=== PATIENT | female | born 1945 | race Caucasian/White ===

== ENCOUNTER 2017-03-10 07:22 | Inpatient (IN) | payer MEDICARE ==
[~2017-03-10] VITALS: Ht 157.5 cm; Wt 75.4 kg
[2017-03-10] VITALS (15 sets, daily range): BP systolic 129–163; BP diastolic 54–93
[2017-03-10] MEDS ORDERED: ONDANSETRON PF 4 MG/2 ML VIAL. IV ONE (07:45)
[2017-03-10] MEDS ORDERED: IV NORMAL SALINE 1000ML BAG 1,000 ML IV ONE (07:45)
[2017-03-10 07:56] LABS: BASO # 0.1 x10^3/uL (0.0-0.2); BASO % 1 % (0-3); EOS % 0 % (0-3); LYMPH # 1.2 x10^3/uL (1.0-4.8); LYMPH % 8 % (24-48); MEAN CORPUSCULAR HEMOGLOBIN 30 pg (25-35); MEAN CORPUSCULAR HGB CONC 34 g/dL (31-37); MEAN CORPUSCULAR VOLUME 89 fL (79-100); MONO % 4 % (0-9); NEUT % 87 % (31-73); PLATELET COUNT 344 x10^3/uL (140-400); RED BLOOD COUNT 1.78 x10^6/uL (3.50-5.40); RED CELL DISTRIBUTION WIDTH 13.3 % (11.5-14.5); WHITE BLOOD COUNT 14.3 x10^3/uL (4.0-11.0)
--- NOTE | 2017-03-10 07:56 | EKG ---
[facility] [address] [place] [address] Test Date: 2017-03-10 Test Time: 07:48:36 Pat Name: YOBANI ROMO Department: Room: Gender: F Bedspread Folder: : 1945 Requested By: MARIELOS SALGADO Order Number: [id number] Reading MD: Jose Trimble Measurements Intervals [place] Rate: 91 P: 0 WV: 150 QRS: 12 QRSD: 92 T: 24 QT: 384 QTc: 474 Interpretive Statements SINUS RHYTHM QRS(T) CONTOUR ABNORMALITY CONSISTENT WITH INFERIOR INFARCT PROBABLY OLD RI6.01 Unconfirmed report No previous ECG available for comparison Electronically Signed On 03-13-2017 9:52:02 CDT by Jose Trimble
[2017-03-10 08:01] LABS: CALCIUM 9.2 mg/dL (8.5-10.1); CREATININE 0.7 mg/dL (0.6-1.0); GFR 82.5; POTASSIUM 3.4 mmol/L (3.5-5.1)
[2017-03-10 08:04] LABS: HEMOGLOBIN 5.4 g/dL (12.0-15.5)
[2017-03-10 08:05] LABS: HEMATOCRIT 15.7 % (36.0-47.0)
[2017-03-10 08:10] LABS: ALBUMIN 2.9 g/dL (3.4-5.0); ALBUMIN/GLOBULIN RATIO 1.2 (1.0-1.7); MAGNESIUM 1.6 mg/dL (1.8-2.4); TOTAL BILIRUBIN 0.2 mg/dL (0.2-1.0); TOTAL PROTEIN 5.3 g/dL (6.4-8.2)
[2017-03-10] MEDS ORDERED: ONDANSETRON PF 4 MG/2 ML VIAL. IV PRN (08:15)
[2017-03-10] MEDS ORDERED: MAGNESIUM OXIDE 400 MG TABLET PO STA (08:15)
[2017-03-10] MEDS ORDERED: POTASSIUM CHLORIDE 20 MEQ TABLET.ER. PO ONE (08:30)
[2017-03-10] MEDS ORDERED: IV NORMAL SALINE 500ML BAG 500 ML IV ONE (08:30)
--- NOTE | 2017-03-10 08:42 | ACF ---
Admission Forms Criteria ANEMIA, IRON DEFICIENCY OR UNSPECIFIED Clinical Indications for Inpatient Care (Place 'X' for any and all applicable criteria): Admission is indicated for ANY ONE of the following(1)(2)(3)(4)(5)(6)(7): [X] I. Inpatient admission required rather than observation care (Also use Anemia, Iron Deficiency or Unspecified: Observation Care guideline as appropriate) because of ANY ONE of the following: [] a) Hemodynamic instability that is severe or persistent [] b) Active bleeding that cannot be rapidly controlled [] c) CVS symptoms (i.e., dyspnea, chest pain, heart failure) that are severe or persistent [] d) Neurologic symptoms (i.e., cognitive impairment, recurrent syncope or near syncope) that are severe or persistent [] e) Cardiac arrhythmias of immediate concern [] f) Acute peripheral ischemia (e.g., pulseless, cool, mottled, or cyanotic extremity) [] g) High-risk low platelet count [] h) Acute renal failure [] i) Ongoing transfusion for blood loss (greater than 2 units) [] j) IV fluid to replace significant ongoing (eg, >24 hours) losses (> 3 L/m2 per day) [] k) Pulmonary artery catheter monitoring [] l) Supplemental oxygen or respiratory treatments for over 24 hours that are performable only in acute inpatient setting [] m) Immediate inpatient surgery [X] n) Other condition, treatment or monitoring requiring inpatient admission [] II Active massive hemorrhage [] III. Active hemolysis with rapidly progressive anemia [A](6) Extended stay beyond goal length of stay may be needed for (17)(18) []a) Diagnosed cause of anemia requiring longer hospitalization (eg, active GI bleeding, immune hemolysis requiring electrophoresis, complications of malignancy requiring acute care []b) Continued emergent anemia indicators (23) []c) Transfusion reactions []d) Associated leukopenia or thrombocytopenia needing inpatient care []e) Active comorbidities (eg, renal failure, heart failure) The original [facility] content created by [facility] has been revised. The portions of the content which have been revised are identified through the use of italic text or in bold. [facility] Guidelines has neither reviewed nor approved the modified material. All other unmodified content is copyright [facility]. Please see references footnoted in the original [facility] edition 2016 Admission Criteria Met?: Yes JANY JASON Mar 10, 2017 08:42
[2017-03-10 08:45] LABS: % SAT IRON 5 % (15-34); IRON,SERUM 16 ug/dL (50-170)
--- NOTE | 2017-03-10 08:45 | PHYS DOC ---
Past Medical History Past Medical History: Hypertension, Hyperthyroid Past Surgical History: Hysterectomy Alcohol Use: None Drug Use: None Adult General Chief Complaint Chief Complaint: NAUSEA/VOMITING/DIARRHA HPI HPI Patient is a 71 year old female presenting to the emergency department for evaluation of weakness and dizziness fatigue nausea and continued dry heaves. Patient was feeling worse this morning and felt as if she could not control the nausea. Patient is scheduled for parathyroid gland surgery later this month at [facility]. She denies any black or bloody stools. She denies any bleeding. She says that she has had anemia in the past but never required blood transfusions that she knows of. She denies any fevers chills diarrhea. Review of Systems Review of Systems Constitutional: Denies fever or chills [] Eyes: Denies change in visual acuity, redness, or eye pain [] HENT: Denies nasal congestion or sore throat [] Respiratory: Denies cough or shortness of breath [] Cardiovascular: No additional information not addressed in HPI [] GI: Denies abdominal pain. + nausea. No vomiting, bloody stools or diarrhea [] : Denies dysuria or hematuria [] Musculoskeletal: Denies back pain or joint pain [] Integument: Denies rash or skin lesions [] Neurologic: Denies headache, focal weakness. + dizzinesss Current Medications Current Medications Current Medications Medications (Trade) Dose Ordered Sig/Kiersten Start Time Stop Time Status Last Admin Dose Admin Fentanyl Citrate (Fentanyl 2ml Vial) 50 mcg PRN Q2HR PRN 03/10/17 08:15 03/11/17 08:14 Magnesium Oxide (Magnesium Oxide) 400 mg 1X STAT 03/10/17 08:15 03/10/17 08:21 DC Ondansetron HCl (Zofran) 4 mg PRN Q8HRS PRN 03/10/17 08:15 03/11/17 08:14 Potassium Chloride (Klor-Con) 40 meq 1X ONCE 03/10/17 08:30 03/10/17 08:31 DC Sodium Chloride 500 ml @ 500 mls/hr 1X ONCE 03/10/17 08:30 03/10/17 09:29 Allergies Allergies Allergies Coded Allergies Type Severity Reaction Last Updated Verified codeine Allergy Intermediate rash 03/10/17 Yes Physical Exam Physical Exam Constitutional: Well developed, well nourished, no acute distress, non-toxic appearance. [] HENT: Normocephalic, atraumatic, bilateral external ears normal, oropharynx moist, no oral exudates, nose normal. [] Eyes: PERRLA, EOMI, conjunctival pallor, no discharge. [] Neck: Normal range of motion, no tenderness, supple, no stridor. [] Cardiovascular:Heart rate regular rhythm, no murmur [] Lungs & Thorax: Bilateral breath sounds clear to auscultation [] Abdomen: Bowel sounds normal, soft, no tenderness, no masses, no pulsatile masses. [] Skin: Warm, dry, no erythema, no rash. [] Back: No tenderness, no CVA tenderness. [] Extremities: No tenderness, no cyanosis, no clubbing, ROM intact, no edema. [] Neurologic: Alert and oriented X 3, normal motor function, normal sensory function, no focal deficits noted. [] Current Patient Data Vital Signs Vital Signs Date Time Temp Pulse Resp B/P (MAP) Pulse Ox O2 Delivery O2 Flow Rate FiO2 03/10/17 07:22 98.3 95 20 142/65 (90) 98 Room Air 98.3 Lab Values Laboratory Tests Test 03/10/17 07:44 White Blood Count 14.3 x10^3/uL (4.0-11.0) H Red Blood Count 1.78 x10^6/uL (3.50-5.40) L Hemoglobin 5.4 g/dL (12.0-15.5) *L Hematocrit 15.7 % (36.0-47.0) *L Mean Corpuscular Volume 89 fL (79-100) Mean Corpuscular Hemoglobin 30 pg (25-35) Mean Corpuscular Hemoglobin Concent 34 g/dL (31-37) Red Cell Distribution Width 13.3 % (11.5-14.5) Platelet Count 344 x10^3/uL (140-400) Neutrophils (%) (Auto) 87 % (31-73) H Lymphocytes (%) (Auto) 8 % (24-48) L Monocytes (%) (Auto) 4 % (0-9) Eosinophils (%) (Auto) 0 % (0-3) Basophils (%) (Auto) 1 % (0-3) Neutrophils # (Auto) 12.5 x10^3uL (1.8-7.7) H Lymphocytes # (Auto) 1.2 x10^3/uL (1.0-4.8) Monocytes # (Auto) 0.6 x10^3/uL (0.0-1.1) Eosinophils # (Auto) 0.0 x10^3/uL (0.0-0.7) Basophils # (Auto) 0.1 x10^3/uL (0.0-0.2) Platelet Estimate Pending Sodium Level 131 mmol/L (136-145) L Potassium Level 3.4 mmol/L (3.5-5.1) L Chloride Level 95 mmol/L (98-107) L Carbon Dioxide Level 28 mmol/L (21-32) Anion Gap 8 (6-14) Blood Urea Nitrogen 59 mg/dL (7-20) H Creatinine 0.7 mg/dL (0.6-1.0) Estimated GFR (Cockcroft-Gault) 82.5 BUN/Creatinine Ratio 84 (6-20) H Glucose Level 141 mg/dL (70-99) H Calcium Level 9.2 mg/dL (8.5-10.1) Magnesium Level 1.6 mg/dL (1.8-2.4) L Total Bilirubin 0.2 mg/dL (0.2-1.0) Aspartate Amino Transferase (AST) 15 U/L (15-37) Alanine Aminotransferase (ALT) 12 U/L (14-59) L Alkaline Phosphatase 40 U/L (46-116) L Creatine Kinase 22 U/L (26-192) L Troponin I Quantitative 0.025 ng/mL (0.000-0.055) Total Protein 5.3 g/dL (6.4-8.2) L Albumin 2.9 g/dL (3.4-5.0) L Albumin/Globulin Ratio 1.2 (1.0-1.7) Lipase 249 U/L (73-393) Laboratory Tests 03/10/17 07:44 Laboratory Tests 03/10/17 07:44 EKG EKG Sinus rhythm at 91 bpm with normal axis no obvious ST elevation or depression and normal T waves. Radiology/Procedures Radiology/Procedures [] Course & Med Decision Making Course & Med Decision Making Patient has anemia that is normocytic and there is no obvious blood loss anemia. Patient is symptomatic from this and is functioning quite poorly at home so she will require admission and transfusion. Patient will be admitted with 3 units of blood ordered at this time and then will be reassessed as an inpatient. Patient aware and agreeable with plan and was admitted in stable condition. Dragon Disclaimer Dragon Disclaimer This electronic medical record was generated, in whole or in part, using a voice recognition dictation system. Departure Departure Impression: Primary Impression: Anemia Additional Impressions: Hypokalemia Hypomagnesemia Hyponatremia Dizziness Nausea alone Disposition: ADMITTED INPATIENT Admitting Physician: Melody Herrmann Condition: STABLE Referrals: STEFF BYRNES MD (PCP) Problem Qualifiers Primary Impression: Anemia Anemia type: unspecified type Qualified Codes: D64.9 - Anemia, unspecified MARIELOS SALGADO DO Mar 10, 2017 08:45
[2017-03-10] MEDS ORDERED: CRAN250T PO (10:11)
[2017-03-10] MEDS ORDERED: MULT-208 PO (10:11)
[2017-03-10] MEDS ORDERED: LISI1TAB7 PO (10:11)
[2017-03-10] MEDS ORDERED: GLUC100018 PO (10:11)
[2017-03-10] MEDS ORDERED: CHLO4TAB PO (10:11)
[2017-03-10 10:20] LABS: PLT ESTIMATE ADEQUATE (ADEQUATE)
[2017-03-10] MEDS: ONDANSETRON PF 4 MG/2 ML VIAL. IV PRN ×2 (12:18→20:58)
[2017-03-10] MEDS: MAG HYDROX/ALUMINUM HYD/SIMETH 30 ML ORAL.SUSP PO PRN ×2 (14:16→20:57)
--- NOTE | 2017-03-10 15:27 | PDOC2 ---
GI CONSULT Date Date/Time DATE: 03/10/17 TIME: 15:18 Providers Attending Physician Melody Herrmann MD Referring Physician Consulting Physician Dr. Rangel History of Present Illness HPI 70 WF with diagnosis of hyperparathyroidism per testing- curiously Calcium level here is normal - has surgery planned but has developed over the last several months new GI symptoms- they were ascribed to her hyperparathyroid but presents now with nausea, weakness and profound iron def. anemia. She denies melena or hematochezia but did have change in bowel habits about 2-3 months ago - irreg- and also developed arthritis in knees so began to take excedrin several times per day for relief- Then began to notice upset stomach and started taking yana seltzer to treat this- no EGD or meds for stomach. last colonoscopy 1989- at that time had uterian fibroids and anemia but anemia resolved after hysterectomy and colon was reported as negative History Past Medical History HTN recent elevated parathyroid level Past Surgical History hysterectomy Social/Personal History no smoking or alcohol Review of Systems Constitutional: yes: weakness Ears/Nose/Throat: Yes: no symptom reported, ear pain, ear discharge, ear itching, ear ringing, nasal pain, nasal discharge, nasal congestion, mouth pain , oral swelling, oropharyngeal pain, throat pain, throat swelling, dysphagia, other (goiter) Gastrointestinal: Yes: no symptom reported, nausea, vomiting, RUQ pain, epigastric pain, diarrhea, constipation, melena, hematochezia, hematemesis, abnormal stool, anorexia, hemorrhoids, abdominal pain, other (indigestion) Musculoskeletal: Yes: no symptom reported, shoulder pain, arm pain, back pain, hand pain, leg pain, foot pain, joint pain, muscle pain, muscle stiffness, muscle atrophy, joint swelling, neck pain, other (arthritis) Allergies Allergies Allergies Coded Allergies Type Severity Reaction Last Updated Verified codeine Allergy Intermediate rash 03/10/17 Yes Medications Medications Current Medications Sodium Chloride 1,000 ml @ 1,000 mls/hr 1X ONCE IV Last administered on 07:42; Start 03/10/17 at 07:45; Stop 03/10/17 at 08:44; Status DC Ondansetron HCl (Zofran) 8 mg 1X ONCE IV Last administered on 03/10/17 07:42; Start 03/10/17 at 07:45; Stop 03/10/17 at 07:46; Status DC Potassium Chloride (Klor-Con) 40 meq 1X ONCE PO Last administered on 03/10/17 08:55; Start 03/10/17 at 08:30; Stop 03/10/17 at 08:31; Status DC Sodium Chloride 500 ml @ 500 mls/hr 1X ONCE IV Last administered on 03/10/17 09:19; Start 03/10/17 at 08:30; Stop 03/10/17 at 09:29; Status DC Magnesium Oxide (Magnesium Oxide) 400 mg 1X STAT PO Last administered on 08:55; Start 03/10/17 at 08:15; Stop 03/10/17 at 08:21; Status DC Ondansetron HCl (Zofran) 4 mg PRN Q8HRS PRN IV NAUSEA/VOMITING; Start 03/10/17 at 08:15; Stop 03/10/17 at 09:15; Status DC Fentanyl Citrate (Fentanyl 2ml Vial) 50 mcg PRN Q2HR PRN IV PAIN; Start at 08:15; Stop 03/11/17 at 08:14 Ondansetron HCl (Zofran) 4 mg PRN Q6HRS PRN IV NAUSEA/VOMITING Last administered on 03/10/17 12:18; Start 03/10/17 at 09:12; Stop 03/11/17 at 09:11 Acetaminophen (Tylenol) 500 mg PRN Q6HRS PRN PO MILD PAIN / TEMP; Start at 09:15 Al Hydroxide/Mg Hydroxide (Mylanta Plus Xs) 30 ml PRN Q6HRS PRN PO DYSPEPSIA Last administered on 03/10/17 14:16; Start 03/10/17 at 14:15 Sodium Chloride 1,000 ml @ 100 mls/hr Q10H IV ; Start 03/10/17 at 14:30 Active Scripts Active Reported Chlortabs (Chlorpheniramine Maleate) 4 Mg Tablet 4 Mg PO Azo Cranberry (Cranberry Fruit Concentrate) 250 Mg Tab.chew 250 Mg PO Glucosamine (Glucosamine Sulfate 2KCL) 1,000 Mg Tablet 1,000 Mg PO Multi-Day Vitamins (Multivitamin) 1 Each Tablet 1 Tab PO DAILY Lisinopril-Hctz 20-25 Mg Tab (Lisinopril/Hydrochlorothiazide) 1 Each Tablet 1 Tab PO DAILY Physical Exam Physical Exam VSS mild goiter noted chest -clear cor- RRR abd soft NON tender extrem- no CCE neuro- non focal Labs Labs Laboratory Tests Test 03/10/17 07:44 03/10/17 08:11 White Blood Count 14.3 x10^3/uL (4.0-11.0) Red Blood Count 1.78 x10^6/uL (3.50-5.40) Hemoglobin 5.4 g/dL (12.0-15.5) Hematocrit 15.7 % (36.0-47.0) Mean Corpuscular Volume 89 fL (79-100) Mean Corpuscular Hemoglobin 30 pg (25-35) Mean Corpuscular Hemoglobin Concent 34 g/dL (31-37) Red Cell Distribution Width 13.3 % (11.5-14.5) Platelet Count 344 x10^3/uL (140-400) Neutrophils (%) (Auto) 87 % (31-73) Lymphocytes (%) (Auto) 8 % (24-48) Monocytes (%) (Auto) 4 % (0-9) Eosinophils (%) (Auto) 0 % (0-3) Basophils (%) (Auto) 1 % (0-3) Neutrophils # (Auto) 12.5 x10^3uL (1.8-7.7) Lymphocytes # (Auto) 1.2 x10^3/uL (1.0-4.8) Monocytes # (Auto) 0.6 x10^3/uL (0.0-1.1) Eosinophils # (Auto) 0.0 x10^3/uL (0.0-0.7) Basophils # (Auto) 0.1 x10^3/uL (0.0-0.2) Segmented Neutrophils % 90 % (35-66) Lymphocytes % 8 % (24-48) Monocytes % 2 % (0-10) Platelet Estimate Adequate (ADEQUATE) Sodium Level 131 mmol/L (136-145) Potassium Level 3.4 mmol/L (3.5-5.1) Chloride Level 95 mmol/L (98-107) Carbon Dioxide Level 28 mmol/L (21-32) Anion Gap 8 (6-14) Blood Urea Nitrogen 59 mg/dL (7-20) Creatinine 0.7 mg/dL (0.6-1.0) Estimated GFR (Cockcroft-Gault) 82.5 BUN/Creatinine Ratio 84 (6-20) Glucose Level 141 mg/dL (70-99) Calcium Level 9.2 mg/dL (8.5-10.1) Magnesium Level 1.6 mg/dL (1.8-2.4) Iron Level 16 ug/dL (50-170) Total Iron Binding Capacity 328 ug/dL (250-450) Iron Saturation 5 % (15-34) Ferritin 29 ng/mL (8-252) Total Bilirubin 0.2 mg/dL (0.2-1.0) Aspartate Amino Transf (AST/SGOT) 15 U/L (15-37) Alanine Aminotransferase (ALT/SGPT) 12 U/L (14-59) Alkaline Phosphatase 40 U/L (46-116) Creatine Kinase 22 U/L (26-192) Troponin I Quantitative 0.025 ng/mL (0.000-0.055) Total Protein 5.3 g/dL (6.4-8.2) Albumin 2.9 g/dL (3.4-5.0) Albumin/Globulin Ratio 1.2 (1.0-1.7) Lipase 249 U/L (73-393) Reticulocyte Count (auto) 1.6 % (0.5-2.5) Assessment Assessment Profound iron def anemia- no overt bleeding- no melena - but does have indigestion and regular aspirin use for knee pain/arthritis- no EGD or GI work and last colonoscopy 1989 Dyspepsia and nausea- likely from aspirin- although told could be from hyperparathyroidism Irreg bowels- mild, also told from parathyroid- no bleeding but overdue for screening colonoscopy Problems: Plan Plan protonix stop aspirin EGD consider colonoscopy later to complete w/u Thank you for allowing us to participate in the care of your patient. We will continue to follow the patient with you and provide an appropriate recommendation as it becomes available. SRINIVASA RANGEL MD Mar 10, 2017 15:27
[2017-03-10] MEDS: PANTOPRAZOLE 40 MG TABLET.DR. PO SCH (16:16)
[2017-03-10] MEDS: IV NORMAL SALINE 1000ML BAG 1,000 ML IV SCH (16:18)
--- NOTE | 2017-03-10 17:56 | HP ---
ADMIT DATE: 03/10/2017 CHIEF COMPLAINT: Nausea, vomiting, diarrhea. HISTORY OF PRESENT ILLNESS: The patient is a pleasant 71-year-old female who presented to the ER this morning with nausea, vomiting, and diarrhea. She has associated dizziness; she rated at 9/10. She tried taking some home meds, but that did not work. She apparently is scheduled for a parathyroid surgery at [facility] this month. On the ER, we found that she had a hemoglobin of 5.4. She is fairly anemic. I have discussed the case with the ER physician. We are going to admit the patient and consult Heme/Onc and give her transfusions. PAST MEDICAL HISTORY: Hyperthyroidism, hypertension, hysterectomy. ALLERGIES: CODEINE. FAMILY HISTORY: Coronary artery disease. SOCIAL HISTORY: She does not drink, smoke, or take drugs. MEDICATIONS: Reviewed, please refer to the MRAD. REVIEW OF SYSTEMS: GENERAL: No history of weight change, weakness or fevers. SKIN: No bruising, hair changes or rashes. EYES: No blurred, double or loss of vision. NOSE AND THROAT: No history of nosebleeds, hoarseness or sore throat. HEART: No history of palpitations, chest pain or shortness of breath on exertion. LUNGS: Denies cough, hemoptysis, wheezing or shortness of breath. GASTROINTESTINAL: The patient complains of nausea. GENITOURINARY: No history of frequency, urgency, hesitancy or nocturia. NEUROLOGIC: Denies history of numbness, tingling, tremor or weakness. PSYCHIATRIC: No history of panic, anxiety or depression. ENDOCRINE: The patient complains of weakness. EXTREMITIES: Denies muscle weakness, joint pain, pain on walking or stiffness. PHYSICAL EXAMINATION: VITAL SIGNS: Temperature afebrile, pulse 92, respirations 18, blood pressure 144/90. GENERAL: She is alert, cooperative. HEART: Normal S1, S2. LUNGS: Clear. ABDOMEN: Soft. Decreased bowel sounds, nontender. EXTREMITIES: No edema. SKIN: No rashes. ENDOCRINE: No thyromegaly. LYMPHATICS: No cervical nodes. HEMATOPOIETIC: No bruising. LABORATORY DATA: White count was 14, hemoglobin 5.4, platelets 344. Electrolytes: Sodium 131, potassium 3.4, chloride 95, bicarbonate 28, BUN 59, creatinine 0.7, glucose 141. ASSESSMENT AND PLAN: Anemia, suspect possible occult gastrointestinal bleed versus bone marrow disease. The patient is being admitted, we will consult GI in Heme/Onc, transfused 3 units of packed red blood cells, frequent labs, continue home medicines, PT/OT. KEVAN MUSTAFA DO DR: ANNE/susie JOB#: [id number] / [id number]
[2017-03-10 18:01] LABS: HEMOGLOBIN 8.7 g/dL (12.0-15.5); RED BLOOD COUNT 2.85 x10^6/uL (3.50-5.40); RED CELL DISTRIBUTION WIDTH 13.8 % (11.5-14.5); WHITE BLOOD COUNT 14.1 x10^3/uL (4.0-11.0)
[2017-03-10 18:18] LABS: ALBUMIN 2.7 g/dL (3.4-5.0); ALBUMIN/GLOBULIN RATIO 0.9 (1.0-1.7); CALCIUM 8.5 mg/dL (8.5-10.1); CREATININE 0.6 mg/dL (0.6-1.0); GFR 98.5; TOTAL BILIRUBIN 1.6 mg/dL (0.2-1.0); TOTAL PROTEIN 5.8 g/dL (6.4-8.2)
[2017-03-10] MEDS: hydroCHLOROthiazide 25 MG TABLET PO SCH (18:31)
[2017-03-10] MEDS: LISINOPRIL 20 MG TABLET PO SCH (18:32)
[2017-03-10] MEDS: fentaNYL PF VIAL 100 MCG/2 ML VIAL IV PRN (18:37)
[2017-03-11] MEDS: fentaNYL PF VIAL 100 MCG/2 ML VIAL IV PRN ×3 (01:33→20:29)
[2017-03-11] MEDS: IV NORMAL SALINE 1000ML BAG 1,000 ML IV SCH ×3 (01:34→20:30)
[2017-03-11 03:08] LABS: PTH INTACT 52 pg/mL (15-65)
[2017-03-11 03:15] VITALS: BP 119/68
[2017-03-11 04:33] LABS: BASO # 0.1 x10^3/uL (0.0-0.2); BASO % 1 % (0-3); EOS % 1 % (0-3); HEMATOCRIT 22.4 % (36.0-47.0); HEMOGLOBIN 7.7 g/dL (12.0-15.5); LYMPH # 1.9 x10^3/uL (1.0-4.8); LYMPH % 20 % (24-48); MEAN CORPUSCULAR HEMOGLOBIN 31 pg (25-35); MEAN CORPUSCULAR HGB CONC 35 g/dL (31-37); MEAN CORPUSCULAR VOLUME 88 fL (79-100); MONO % 11 % (0-9); NEUT % 68 % (31-73); PLATELET COUNT 252 x10^3/uL (140-400); RED BLOOD COUNT 2.53 x10^6/uL (3.50-5.40); RED CELL DISTRIBUTION WIDTH 13.9 % (11.5-14.5); WHITE BLOOD COUNT 9.7 x10^3/uL (4.0-11.0)
[2017-03-11 04:44] LABS: CALCIUM 8.4 mg/dL (8.5-10.1); CREATININE 0.6 mg/dL (0.6-1.0); GFR 98.5; POTASSIUM 3.9 mmol/L (3.5-5.1)
[2017-03-11 07:00] VITALS: BP 137/77
[2017-03-11 08:31] LABS: FOLATE 17.31 ng/ml (3.2-20.0)
--- NOTE | 2017-03-11 08:39 | PDOC ---
Provider Note Provider Note Heme consult dictated- [id number] Iron def anemia- EGD/ colonoscopy planned. Venofer ordered. Will need more as outpt. No evidence of hemolysis, suspect blood loss/ nutritional. Will attempt to pull [facility]'s records. Thank you. AMISHA DALEY DO Mar 11, 2017 08:39
[2017-03-11] MEDS ORDERED: IRON SUCROSE COMPLEX 500 MG in IV NORMAL SALINE 250ML 250 ML IV ONE (09:00)
[2017-03-11 11:00] VITALS: BP 133/62
--- NOTE | 2017-03-11 11:13 | PDOC ---
PROGRESS NOTES Chief Complaint Chief Complaint Severe Anemia with H/O: Hyperthyroidism, hypertension, hysterectomy. History of Present Illness History of Present Illness Pt seen and examined VSS DW Daughter and RN HgB trending back down after 3 units Vitals Vitals Vital Signs Date Time Temp Pulse Resp B/P (MAP) Pulse Ox O2 Delivery O2 Flow Rate FiO2 03/11/17 11:08 98 Room Air 03/11/17 11:00 98.1 91 16 133/62 (85) 98.1 Physical Exam General: Alert, Oriented X3, Cooperative Heart: Regular rate, Normal S1, Normal S2 Lungs: Clear Abdomen: Normal bowel sounds, Soft Extremities: No clubbing, No cyanosis Skin: No rashes, No breakdown Labs LABS Laboratory Tests Test 03/10/17 17:55 03/11/17 03:39 White Blood Count 14.1 x10^3/uL (4.0-11.0) 9.7 x10^3/uL (4.0-11.0) Red Blood Count 2.85 x10^6/uL (3.50-5.40) 2.53 x10^6/uL (3.50-5.40) Hemoglobin 8.7 g/dL (12.0-15.5) 7.7 g/dL (12.0-15.5) Hematocrit 25.0 % (36.0-47.0) 22.4 % (36.0-47.0) Mean Corpuscular Volume 88 fL (79-100) 88 fL (79-100) Mean Corpuscular Hemoglobin 30 pg (25-35) 31 pg (25-35) Mean Corpuscular Hemoglobin Concent 35 g/dL (31-37) 35 g/dL (31-37) Red Cell Distribution Width 13.8 % (11.5-14.5) 13.9 % (11.5-14.5) Platelet Count 266 x10^3/uL (140-400) 252 x10^3/uL (140-400) Sodium Level 132 mmol/L (136-145) 134 mmol/L (136-145) Potassium Level 4.0 mmol/L (3.5-5.1) 3.9 mmol/L (3.5-5.1) Chloride Level 99 mmol/L (98-107) 102 mmol/L (98-107) Carbon Dioxide Level 28 mmol/L (21-32) 27 mmol/L (21-32) Anion Gap 5 (6-14) 5 (6-14) Blood Urea Nitrogen 36 mg/dL (7-20) 24 mg/dL (7-20) Creatinine 0.6 mg/dL (0.6-1.0) 0.6 mg/dL (0.6-1.0) Estimated GFR (Cockcroft-Gault) 98.5 98.5 BUN/Creatinine Ratio 60 (6-20) Glucose Level 118 mg/dL (70-99) 99 mg/dL (70-99) Calcium Level 8.5 mg/dL (8.5-10.1) 8.4 mg/dL (8.5-10.1) Total Bilirubin 1.6 mg/dL (0.2-1.0) Aspartate Amino Transf (AST/SGOT) 17 U/L (15-37) Alanine Aminotransferase (ALT/SGPT) 13 U/L (14-59) Alkaline Phosphatase 43 U/L (46-116) Total Protein 5.8 g/dL (6.4-8.2) Albumin 2.7 g/dL (3.4-5.0) Albumin/Globulin Ratio 0.9 (1.0-1.7) Neutrophils (%) (Auto) 68 % (31-73) Lymphocytes (%) (Auto) 20 % (24-48) Monocytes (%) (Auto) 11 % (0-9) Eosinophils (%) (Auto) 1 % (0-3) Basophils (%) (Auto) 1 % (0-3) Neutrophils # (Auto) 6.6 x10^3uL (1.8-7.7) Lymphocytes # (Auto) 1.9 x10^3/uL (1.0-4.8) Monocytes # (Auto) 1.0 x10^3/uL (0.0-1.1) Eosinophils # (Auto) 0.1 x10^3/uL (0.0-0.7) Basophils # (Auto) 0.1 x10^3/uL (0.0-0.2) Lactate Dehydrogenase 132 U/L (81-234) Vitamin B12 Level 823 pg/mL (247-911) Serum Folate 17.31 ng/ml (3.2-20.0) Review of Systems Review of Systems co weakness co hunger Assessment and Plan Assessmemt and Plan Problems Medical Problems: (1) Dizziness Status: Acute (2) Hypokalemia Status: Acute (3) Hypomagnesemia Status: Acute (4) Hyponatremia Status: Acute (5) Nausea alone Status: Acute Severe Anemia with H/O: Hyperthyroidism, hypertension, hysterectomy. Plan W/O in progress Appreciate subspecialist input. Recheck labs PTOT Home meds Floow HgB EGD today Problems: Comment Review of Relevant I have reviewed the following items fawn (where applicable) has been applied. Labs Laboratory Tests Test 03/10/17 07:44 03/10/17 08:11 03/10/17 17:55 03/11/17 03:39 White Blood Count 14.3 x10^3/uL (4.0-11.0) 14.1 x10^3/uL (4.0-11.0) 9.7 x10^3/uL (4.0-11.0) Red Blood Count 1.78 x10^6/uL (3.50-5.40) 2.85 x10^6/uL (3.50-5.40) 2.53 x10^6/uL (3.50-5.40) Hemoglobin 5.4 g/dL (12.0-15.5) 8.7 g/dL (12.0-15.5) 7.7 g/dL (12.0-15.5) Hematocrit 15.7 % (36.0-47.0) 25.0 % (36.0-47.0) 22.4 % (36.0-47.0) Mean Corpuscular Volume 89 fL (79-100) 88 fL (79-100) 88 fL (79-100) Mean Corpuscular Hemoglobin 30 pg (25-35) 30 pg (25-35) 31 pg (25-35) Mean Corpuscular Hemoglobin Concent 34 g/dL (31-37) 35 g/dL (31-37) 35 g/dL (31-37) Red Cell Distribution Width 13.3 % (11.5-14.5) 13.8 % (11.5-14.5) 13.9 % (11.5-14.5) Platelet Count 344 x10^3/uL (140-400) 266 x10^3/uL (140-400) 252 x10^3/uL (140-400) Neutrophils (%) (Auto) 87 % (31-73) 68 % (31-73) Lymphocytes (%) (Auto) 8 % (24-48) 20 % (24-48) Monocytes (%) (Auto) 4 % (0-9) 11 % (0-9) Eosinophils (%) (Auto) 0 % (0-3) 1 % (0-3) Basophils (%) (Auto) 1 % (0-3) 1 % (0-3) Neutrophils # (Auto) 12.5 x10^3uL (1.8-7.7) 6.6 x10^3uL (1.8-7.7) Lymphocytes # (Auto) 1.2 x10^3/uL (1.0-4.8) 1.9 x10^3/uL (1.0-4.8) Monocytes # (Auto) 0.6 x10^3/uL (0.0-1.1) 1.0 x10^3/uL (0.0-1.1) Eosinophils # (Auto) 0.0 x10^3/uL (0.0-0.7) 0.1 x10^3/uL (0.0-0.7) Basophils # (Auto) 0.1 x10^3/uL (0.0-0.2) 0.1 x10^3/uL (0.0-0.2) Segmented Neutrophils % 90 % (35-66) Lymphocytes % 8 % (24-48) Monocytes % 2 % (0-10) Platelet Estimate Adequate (ADEQUATE) Sodium Level 131 mmol/L (136-145) 132 mmol/L (136-145) 134 mmol/L (136-145) Potassium Level 3.4 mmol/L (3.5-5.1) 4.0 mmol/L (3.5-5.1) 3.9 mmol/L (3.5-5.1) Chloride Level 95 mmol/L (98-107) 99 mmol/L (98-107) 102 mmol/L (98-107) Carbon Dioxide Level 28 mmol/L (21-32) 28 mmol/L (21-32) 27 mmol/L (21-32) Anion Gap 8 (6-14) 5 (6-14) 5 (6-14) Blood Urea Nitrogen 59 mg/dL (7-20) 36 mg/dL (7-20) 24 mg/dL (7-20) Creatinine 0.7 mg/dL (0.6-1.0) 0.6 mg/dL (0.6-1.0) 0.6 mg/dL (0.6-1.0) Estimated GFR (Cockcroft-Gault) 82.5 98.5 98.5 BUN/Creatinine Ratio 84 (6-20) 60 (6-20) Glucose Level 141 mg/dL (70-99) 118 mg/dL (70-99) 99 mg/dL (70-99) Calcium Level 9.2 mg/dL (8.5-10.1) 8.5 mg/dL (8.5-10.1) 8.4 mg/dL (8.5-10.1) Magnesium Level 1.6 mg/dL (1.8-2.4) Iron Level 16 ug/dL (50-170) Total Iron Binding Capacity 328 ug/dL (250-450) Iron Saturation 5 % (15-34) Transferrin 263 mg/dL (200-370) Ferritin 29 ng/mL (8-252) Total Bilirubin 0.2 mg/dL (0.2-1.0) 1.6 mg/dL (0.2-1.0) Aspartate Amino Transf (AST/SGOT) 15 U/L (15-37) 17 U/L (15-37) Alanine Aminotransferase (ALT/SGPT) 12 U/L (14-59) 13 U/L (14-59) Alkaline Phosphatase 40 U/L (46-116) 43 U/L (46-116) Creatine Kinase 22 U/L (26-192) Troponin I Quantitative 0.025 ng/mL (0.000-0.055) Total Protein 5.3 g/dL (6.4-8.2) 5.8 g/dL (6.4-8.2) Albumin 2.9 g/dL (3.4-5.0) 2.7 g/dL (3.4-5.0) Albumin/Globulin Ratio 1.2 (1.0-1.7) 0.9 (1.0-1.7) Lipase 249 U/L (73-393) Reticulocyte Count (auto) 1.6 % (0.5-2.5) Estimated GFR (Non- 95 (>59) EGFR 110 (>59) PTH (Intact) Specimen Description Comment (.) Parathyroid Hormone (Intact) 52 pg/mL (15-65) Calcium (PTH Intact) 9.1 mg/dL (8.7-10.3) Creatinine (PTH Intact) 0.54 mg/dL (0.57-1.00) Phosphorus (PTH Intact) 2.9 mg/dL (2.5-4.5) Lactate Dehydrogenase 132 U/L (81-234) Vitamin B12 Level 823 pg/mL (247-911) Serum Folate 17.31 ng/ml (3.2-20.0) Laboratory Tests Test 03/10/17 17:55 03/11/17 03:39 White Blood Count 14.1 x10^3/uL (4.0-11.0) 9.7 x10^3/uL (4.0-11.0) Red Blood Count 2.85 x10^6/uL (3.50-5.40) 2.53 x10^6/uL (3.50-5.40) Hemoglobin 8.7 g/dL (12.0-15.5) 7.7 g/dL (12.0-15.5) Hematocrit 25.0 % (36.0-47.0) 22.4 % (36.0-47.0) Mean Corpuscular Volume 88 fL (79-100) 88 fL (79-100) Mean Corpuscular Hemoglobin 30 pg (25-35) 31 pg (25-35) Mean Corpuscular Hemoglobin Concent 35 g/dL (31-37) 35 g/dL (31-37) Red Cell Distribution Width 13.8 % (11.5-14.5) 13.9 % (11.5-14.5) Platelet Count 266 x10^3/uL (140-400) 252 x10^3/uL (140-400) Sodium Level 132 mmol/L (136-145) 134 mmol/L (136-145) Potassium Level 4.0 mmol/L (3.5-5.1) 3.9 mmol/L (3.5-5.1) Chloride Level 99 mmol/L (98-107) 102 mmol/L (98-107) Carbon Dioxide Level 28 mmol/L (21-32) 27 mmol/L (21-32) Anion Gap 5 (6-14) 5 (6-14) Blood Urea Nitrogen 36 mg/dL (7-20) 24 mg/dL (7-20) Creatinine 0.6 mg/dL (0.6-1.0) 0.6 mg/dL (0.6-1.0) Estimated GFR (Cockcroft-Gault) 98.5 98.5 BUN/Creatinine Ratio 60 (6-20) Glucose Level 118 mg/dL (70-99) 99 mg/dL (70-99) Calcium Level 8.5 mg/dL (8.5-10.1) 8.4 mg/dL (8.5-10.1) Total Bilirubin 1.6 mg/dL (0.2-1.0) Aspartate Amino Transf (AST/SGOT) 17 U/L (15-37) Alanine Aminotransferase (ALT/SGPT) 13 U/L (14-59) Alkaline Phosphatase 43 U/L (46-116) Total Protein 5.8 g/dL (6.4-8.2) Albumin 2.7 g/dL (3.4-5.0) Albumin/Globulin Ratio 0.9 (1.0-1.7) Neutrophils (%) (Auto) 68 % (31-73) Lymphocytes (%) (Auto) 20 % (24-48) Monocytes (%) (Auto) 11 % (0-9) Eosinophils (%) (Auto) 1 % (0-3) Basophils (%) (Auto) 1 % (0-3) Neutrophils # (Auto) 6.6 x10^3uL (1.8-7.7) Lymphocytes # (Auto) 1.9 x10^3/uL (1.0-4.8) Monocytes # (Auto) 1.0 x10^3/uL (0.0-1.1) Eosinophils # (Auto) 0.1 x10^3/uL (0.0-0.7) Basophils # (Auto) 0.1 x10^3/uL (0.0-0.2) Lactate Dehydrogenase 132 U/L (81-234) Vitamin B12 Level 823 pg/mL (247-911) Serum Folate 17.31 ng/ml (3.2-20.0) Medications Current Medications Sodium Chloride 1,000 ml @ 1,000 mls/hr 1X ONCE IV Last administered on 07:42; Start 03/10/17 at 07:45; Stop 03/10/17 at 08:44; Status DC Ondansetron HCl (Zofran) 8 mg 1X ONCE IV Last administered on 03/10/17 07:42; Start 03/10/17 at 07:45; Stop 03/10/17 at 07:46; Status DC Potassium Chloride (Klor-Con) 40 meq 1X ONCE PO Last administered on 03/10/17 08:55; Start 03/10/17 at 08:30; Stop 03/10/17 at 08:31; Status DC Sodium Chloride 500 ml @ 500 mls/hr 1X ONCE IV Last administered on 03/10/17 09:19; Start 03/10/17 at 08:30; Stop 03/10/17 at 09:29; Status DC Magnesium Oxide (Magnesium Oxide) 400 mg 1X STAT PO Last administered on 08:55; Start 03/10/17 at 08:15; Stop 03/10/17 at 08:21; Status DC Ondansetron HCl (Zofran) 4 mg PRN Q8HRS PRN IV NAUSEA/VOMITING; Start 03/10/17 at 08:15; Stop 03/10/17 at 09:15; Status DC Fentanyl Citrate (Fentanyl 2ml Vial) 50 mcg PRN Q2HR PRN IV PAIN Last administered on 03/11/17 01:33; Start 03/10/17 at 08:15; Stop 03/11/17 at 08:14; Status DC Ondansetron HCl (Zofran) 4 mg PRN Q6HRS PRN IV NAUSEA/VOMITING Last administered on 03/10/17 20:58; Start 03/10/17 at 09:12; Stop 03/11/17 at 09:11; Status DC Acetaminophen (Tylenol) 500 mg PRN Q6HRS PRN PO MILD PAIN / TEMP; Start at 09:15 Al Hydroxide/Mg Hydroxide (Mylanta Plus Xs) 30 ml PRN Q6HRS PRN PO DYSPEPSIA Last administered on 03/10/17 20:57; Start 03/10/17 at 14:15 Sodium Chloride 1,000 ml @ 100 mls/hr Q10H IV Last administered on 03/11/17 01 :34; Start 03/10/17 at 14:30 Pantoprazole Sodium (Protonix) 40 mg BIDAC PO Last administered on 03/10/17 16: 16; Start 03/10/17 at 16:30 Lisinopril (Prinivil) 20 mg DAILY PO Last administered on 03/10/17 18:32; Start 03/10/17 at 17:15 Hydrochlorothiazide (Hydrodiuril) 25 mg DAILY PO Last administered on 03/10/17 18:31; Start 03/10/17 at 17:15 Iron Sucrose 500 mg/Sodium Chloride 275 ml @ 78.571 mls/ hr 1X ONCE IV Last administered on 03/11/17 10:18; Start 03/11/17 at 09:00; Stop 03/11/17 at 12:29 Fentanyl Citrate (Fentanyl 2ml Vial) 50 mcg PRN Q2HR PRN IV PAIN Last administered on 03/11/17 10:15; Start 03/11/17 at 10:00 Active Scripts Active Reported Chlortabs (Chlorpheniramine Maleate) 4 Mg Tablet 4 Mg PO Azo Cranberry (Cranberry Fruit Concentrate) 250 Mg Tab.chew 250 Mg PO Glucosamine (Glucosamine Sulfate 2KCL) 1,000 Mg Tablet 1,000 Mg PO Multi-Day Vitamins (Multivitamin) 1 Each Tablet 1 Tab PO DAILY Lisinopril-Hctz 20-25 Mg Tab (Lisinopril/Hydrochlorothiazide) 1 Each Tablet 1 Tab PO DAILY Vitals/I & O Vital Sign - Last 24 Hours 03/10/17 03/10/17 03/10/17 03/10/17 11:28 11:50 12:31 13:25 Temp 98.5 98.6 98.4 98.6 98.5 98.6 98.4 98.6 Pulse 100 85 90 94 Resp 18 20 20 20 B/P (MAP) 140/71 134/69 134/69 129/78 03/10/17 03/10/17 03/10/1703/10/17 14:49 15:03 15:10 16:07 Temp 99.0 98.6 99.5 99.3 99.0 98.6 99.5 99.3 Pulse 93 98 129 117 Resp 20 18 20 20 B/P (MAP) 144/73 150/74 (99) 156/81 163/83 Pulse Ox 100 O2 Delivery Room Air 03/10/17 03/10/17 03/10/17 03/10/17 17:03 18:32 18:37 19:25 Temp 98.8 99.4 98.8 99.4 Pulse 117 116 Resp 18 B/P (MAP) 163/83 150/93 (112) Pulse Ox 100 96 O2 Delivery Room Air Room Air 03/10/17 03/10/17 03/11/17 03/11/17 20:00 23:00 01:33 02:08 Temp 98.3 98.3 Pulse 86 Resp 20 B/P (MAP) 144/74 (97) Pulse Ox 96 O2 Delivery Room Air Room Air Room Air Room Air 03/11/17 03/11/17 03/11/17 03/11/17 03:15 07:00 08:00 10:15 Temp 98.1 98.1 98.1 98.1 Pulse 83 87 Resp 18 18 B/P (MAP) 119/68 (85) 137/77 (97) Pulse Ox 97 98 98 O2 Delivery Room Air Room Air Room Air Room Air 03/11/17 03/11/17 11:00 11:08 Temp 98.1 98.1 Pulse 91 Resp 16 B/P (MAP) 133/62 (85) Pulse Ox 98 98 O2 Delivery Room Air Room Air Intake and Output 03/10/17 03/10/17 03/11/17 15:00 23:00 07:00 Intake Total 1030 ml 924 ml 240 ml Balance 1030 ml 924 ml 240 ml KEVAN MUSTAFA III DO Mar 11, 2017 11:13
[2017-03-11] MEDS: IV RINGERS,LACTATED 1000ML 1,000 ML IV SCH ×2 (13:14→20:22)
[2017-03-11] MEDS ORDERED: fentaNYL PF VIAL 100 MCG/2 ML VIAL IV PRN ×2 (13:15)
[2017-03-11] MEDS ORDERED: MIDAZOLAM HCL/PF 2 MG/2 ML VIAL. IV PRN (13:15)
[2017-03-11] MEDS ORDERED: LIDOCAINE 1% 1 ML SYRINGE. ID PRN (13:15)
[2017-03-11] MEDS ORDERED: PROPOFOL 20 ML IV ONE (14:16)
--- NOTE | 2017-03-11 14:39 | PDOC4 ---
PROCEDURE Procedure EGD/biopsies Indication: ALEXI, heavy ASA use, dyspepsia Meds: per anesthesia Findings: E-Inactive reflux at GE junction G-defomed pylorus c/w old ulcer disease. Biopsies of antrum. D-2, 8-12mm ulcers on posterior wall bulb w/o active bleeding or SRH. Second portion normal. Sridevi. well. IMP: Duodenal ulcers Reflux, largely healed. REC: Await biopsies. PPI at least 608 weeks; consider chronic therapy if uses NSAIDs on on- going basis. PO iron until stores repleted. Overdue for screening colonoscopy; OK to do as outpatient. Ok to resume diet, meds. KEZIA BONILLA MD Mar 11, 2017 14:39
[2017-03-11] MEDS: ACETAMINOPHEN 500 MG TABLET PO PRN ×2 (15:59→23:40)
[2017-03-11] MEDS: PANTOPRAZOLE 40 MG TABLET.DR. PO SCH ×2 (16:00→16:30)
[2017-03-11] MEDS: LISINOPRIL 20 MG TABLET PO SCH (16:00)
[2017-03-11] MEDS: hydroCHLOROthiazide 25 MG TABLET PO SCH (16:00)
[2017-03-11 19:35] VITALS: BP 129/61
[2017-03-11 23:35] VITALS: BP 122/63
--- NOTE | 2017-03-11 23:58 | CONS ---
DATE OF CONSULTATION: 03/11/2017 REFERRING PROVIDER: Dr. Tong. REASON FOR CONSULTATION: Anemia. HISTORY OF PRESENT ILLNESS: The patient is a 71-year-old female who presented to the hospital with nausea, vomiting, diarrhea, dizziness and notably a hemoglobin of 5.4. She reports recently being diagnosed with a goiter and hyperparathyroidism, evaluated in the [facility] with a plan to undergo a parathyroidectomy on 03/26/2017. She states that her PTH and calcium levels have been markedly abnormal previously. Interestingly, they are actually normal here. She denies any melena or hematochezia. Her last colonoscopy was in 1989 and unremarkable. She has had a hysterectomy previously for uterine fibroids. PAST MEDICAL HISTORY: Possible goiter, hyperparathyroidism, hypertension and arthritis. PAST SURGICAL HISTORY: Hysterectomy for fibroids, tonsillectomy. FAMILY HISTORY: Dad from a stroke in advanced age. Mom at 36, possibly from a gynecologic malignancy. None of her siblings have any health issues. SOCIAL HISTORY: No tobacco, alcohol or drug use. ALLERGIES: CODEINE. CURRENT MEDICATIONS: Hydrochlorothiazide, lisinopril, Protonix, Mylanta, Tylenol, and Zofran. REVIEW OF SYSTEMS: Ten point review of systems completed and unremarkable with the exception of that mentioned in HPI and recent pallor. PHYSICAL EXAMINATION: VITAL SIGNS: Temperature 98.1, pulse 87, respiratory rate 18, blood pressure 137/77, 98% O2 on room air. GENERAL: She is alert and oriented, in no distress at this time. Overall, appears to be in good health. HEENT: Extraocular muscles are intact. Sclerae are without icterus. Mucous membranes are moist. CARDIOVASCULAR: Heart is regular in rhythm and rate. LUNGS: Clear to auscultation bilaterally. ABDOMEN: Soft, nontender. EXTREMITIES: No edema. NEUROLOGIC: No focal deficits. SKIN: Pallor has improved. IMAGING/LABORATORY DATA: Hemoglobin on admission at 5.4, panchito to 8.7, dropped to 7.7 yesterday after 3 units of blood transfused. WBC and platelet count is normal. MCV 88. No schistocytes seen. Reticulocyte count 1.6, creatinine 0.6, PTH 52, calcium 9.1, phosphorus 2.9, total bilirubin 1.6. Serum iron low at 16, ferritin 29. ASSESSMENT AND PLAN: The patient is a 71-year-old female with the following medical problems: 1. Iron deficiency anemia, cause unclear. GI is planning to do an EGD today, likely colonoscopy in the near future. She admits that because of her ongoing symptoms thought to be previously related to hyperparathyroidism, she has not had good oral intake of foods. It is possible some of this iron deficiency could be nutritional in nature as well. Although her bilirubin is mildly elevated, I do not think she has any active hemolysis contributing as her LDH is normal, no schistocytes seen on this smear. B12, folic acid, and haptoglobin are pending. I have ordered her first dose of Venofer 500 mg today and will give another 500 mg tomorrow. I will also set up a followup appointment in our clinic next week to receive at least another 1000 mg of IV iron as she has an IV iron deficit of at least 2200 mg. We discussed that her hemoglobin will likely take 2 months to fully improve, but her symptoms may improve before that. 2. Possible hyperparathyroidism with recent abnormal calcium levels. Her labs are normal here. I will try to pull her outside [facility]'s records to see our labs have been running there. I did reassure her and her daughter that there is not an acute issue with her parathyroid that needs to be dealt with now. However, her upcoming surgery will likely need to be postponed until her hemoglobin is improved. They voiced understanding. Thank you for allowing me to participate in her care. AMISHA DALEY DO DR: AMY/susie JOB#: [id number] / [id number] ALFONSO
[2017-03-12] VITALS (9 sets, daily range): BP systolic 110–173; BP diastolic 60–81
[2017-03-12 04:15] LABS: BASO # 0.1 x10^3/uL (0.0-0.2); BASO % 1 % (0-3); EOS % 1 % (0-3); HEMOGLOBIN 7.1 g/dL (12.0-15.5); LYMPH # 1.6 x10^3/uL (1.0-4.8); LYMPH % 17 % (24-48); MEAN CORPUSCULAR HEMOGLOBIN 31 pg (25-35); MEAN CORPUSCULAR HGB CONC 34 g/dL (31-37); MEAN CORPUSCULAR VOLUME 89 fL (79-100); MONO % 13 % (0-9); NEUT % 69 % (31-73); PLATELET COUNT 261 x10^3/uL (140-400); RED BLOOD COUNT 2.32 x10^6/uL (3.50-5.40); RED CELL DISTRIBUTION WIDTH 14.2 % (11.5-14.5); WHITE BLOOD COUNT 9.5 x10^3/uL (4.0-11.0)
[2017-03-12 04:35] LABS: HEMATOCRIT 20.7 % (36.0-47.0)
[2017-03-12] MEDS: IV NORMAL SALINE 1000ML BAG 1,000 ML IV SCH (06:33)
[2017-03-12] MEDS: PANTOPRAZOLE 40 MG TABLET.DR. PO SCH ×2 (08:16→20:10)
[2017-03-12] MEDS: hydroCHLOROthiazide 25 MG TABLET PO SCH (08:16)
[2017-03-12] MEDS: LISINOPRIL 20 MG TABLET PO SCH (08:17)
[2017-03-12] MEDS: ACETAMINOPHEN 500 MG TABLET PO PRN ×2 (08:21→20:10)
--- NOTE | 2017-03-12 08:46 | PDOC ---
Subjective: Subjective: Onc f/u- Iron def anemia Tolerated EGD, eating well Pallor improved No SOB, CP, melena Objective: Vital Signs: Vital Signs Date Time Temp Pulse Resp B/P (MAP) Pulse Ox O2 Delivery O2 Flow Rate FiO2 03/12/17 08:17 79 110/66 03/12/17 08:00 Room Air 03/12/17 07:00 98.2 16 97 98.2 03/11/17 20:29 2.0 Physical Exam: Extremities: No edema General: Alert, Oriented X3, Cooperative, No acute distress Lungs: Other (no resp distress) Psych/Mental Status: Mental status NL, Mood NL Skin: Other (pallor improved) Labs/Imaging: Hapto, b12, folate WNL Hgb down to 7.1 EGD reviewed- 2 nonbleeding duodenal ulcers Assessment/Plan A/P: 1. Iron deficiency anemia, possibly due to chronic blood loss with 2 duodenal ulcers vs nutritional with recent poor diet. - Venofer ordered again, will have received 1000 mg and will schedule further iron next week in my clinic - Planning for outpt colonoscopy - PPI x 6-9 wk - 1 unit PRBC ordered. 2. Possible hyperparathyroidism with recent abnormal calcium levels. - Labs are normal here. I have not been able to access her [facility]'s records yet but encouraged her to f/u with her manager laboratory re: this hospital course. Surgery would be delayed until hgb improves anyway (will take 2 mth for iron above to fully work) From heme standpoint, ok to DC in AM if hgb stable. AMISHA DALEY DO Mar 12, 2017 08:46
[2017-03-12] MEDS ORDERED: IRON SUCROSE COMPLEX 500 MG in IV NORMAL SALINE 250ML 250 ML IV ONE (09:00)
--- NOTE | 2017-03-12 12:56 | PDOC ---
Subjective: Subjective: Feeling better, would like to go home soon. Eating w/o problem. No bleeding. Objective: Vital Signs: Vital Signs Date Time Temp Pulse Resp B/P (MAP) Pulse Ox O2 Delivery O2 Flow Rate FiO2 03/12/17 10:55 98.6 99 16 155/81 (105) 96 Room Air 98.6 03/11/17 20:29 2.0 Labs: Laboratory Tests Test 03/12/17 03:15 White Blood Count 9.5 x10^3/uL Red Blood Count 2.32 x10^6/uL Hemoglobin 7.1 g/dL Hematocrit 20.7 % Mean Corpuscular Volume 89 fL Mean Corpuscular Hemoglobin 31 pg Mean Corpuscular Hemoglobin Concent 34 g/dL Red Cell Distribution Width 14.2 % Platelet Count 261 x10^3/uL Neutrophils (%) (Auto) 69 % Lymphocytes (%) (Auto) 17 % Monocytes (%) (Auto) 13 % Eosinophils (%) (Auto) 1 % Basophils (%) (Auto) 1 % Neutrophils # (Auto) 6.5 x10^3uL Lymphocytes # (Auto) 1.6 x10^3/uL Monocytes # (Auto) 1.2 x10^3/uL Eosinophils # (Auto) 0.1 x10^3/uL Basophils # (Auto) 0.1 x10^3/uL PE: GEN: NAD, up to chair ABD: S/ND/NT NEURO/PSYCH: A & O 3 OTHER: family present A/P: ALEXI -heme following, another transfusion planned, receiving Venofer GERD, duodenal ulcers -on EGD 03/11/17 as above, path pending -- Continue PPI and iron, NSAID avoidance. Outpt colonoscopy. DC per primary. YURI PHIPPS Mar 12, 2017 12:56
--- NOTE | 2017-03-12 13:12 | PATHOLOGY ---
PATHOLOGY REPORT * * * * * * * * FINAL DIAGNOSIS: Gastric biopsy, antrum: - Congestion and slight superficial chronic inflammation. COMMENT: Sections of the gastric biopsy reveal segments of gastric body mucosa showing superficial congestion and slight chronic inflammation. An immunoperoxidase stain for Helicobacter is obtained. No Helicobacter organisms are identified. There is no evidence of malignancy. (JPM:mgr; d/t: 03/12/17) Special Stain Performed: Immunoperoxidase stain for Helicobacter (A1) REPORT ELECTRONICALLY SIGNED BY: Td Manzano M.D. DATE/TIME: 03/12/2017 13:11 * * * * * * * * GROSS PATHOLOGY: Received in formalin labeled "Kathi Romo, antrum biopsy," are 3 segments of mccallum soft tissue measuring 0.6 x 0.4 x 0.2 cm in aggregate dimensions and ranging from 0.3 to 0.6 cm in maximum dimension. The specimen is submitted entirely in cassette A1. (KAH; 03/11/2017) INITIAL CPT CODE(S): A; 98616, 90022 Professional services performed [place] [facility] [place] [address] Technical services performed by [facility] at [address] [place] [address]. SPECIMEN(S) RECEIVED: A.Antrum biopsy CLINICAL HISTORY: Anemia; r/o H. Pylori PATIENT: KATHI ROMO /AGE: 12 1945 (Age: 71) PATIENT #: [id number] ALT CASE #: SPECIMEN COLLECTION DATE: 03/11/2017 SPECIMEN RECEIVED DATE: 03/11/2017 [facility] - [address] [place] [address] - PHONE: [phone] * * * END OF REPORT * * *
[2017-03-12 19:59] LABS: HEMOGLOBIN 9.4 g/dL (12.0-15.5)
--- NOTE | 2017-03-13 01:11 | DS ---
DATE OF DISCHARGE: 03/12/2017 ADMISSION DIAGNOSIS: Anemia. DISCHARGE DIAGNOSIS: Probable iron deficiency anemia. HOSPITAL COURSE: The patient is a pleasant 71-year-old female who has chronic anemia and has actually been on iron years ago. She is not really clear if she has had her hemoglobin checked lately, but she does follow up with an network engineer administrator often because she has hyperparathyroidism and in fact, she is scheduled to get her parathyroid taken out at [facility] ____ next month. Basically, she initially presented with weakness and anemia. Her hemoglobin is 5.4. We transfused a total of 4 units. She did have an EGD, which was negative. We suspect she has iron deficiency anemia and in fact, I did consult Hem/Onc and they agreed. We gave her an infusion of iron. We plan to discharge with close outpatient followup. DISPOSITION: Home. ACTIVITY: As tolerated. DIET: Low sodium. MEDICATIONS: Please see the MRAD. TOTAL TIME: 32 minutes. KEVAN MUSTAFA DO DR: ANNE/susie JOB#: [id number] / [id number]
== END 2017-03-12 20:30 | disposition home or self-care (01) | DRG 811 ==
LOC: ER 07:22 → 6 SOUTH 08:14
PROVIDERS: ADMIT Internal Medicine; ATTEND Internal Medicine
PROC: 30233N1 Transfusion of Nonautologous Red Blood Cells into Peripheral Vein, Percutaneous Approach (ICD-10-PCS; 2017-03-10)
PROC: 0DB68ZX Excision of Stomach, Via Natural or Artificial Opening Endoscopic, Diagnostic (ICD-10-PCS; principal; 2017-03-11 14:30)
DX: D50.9 Iron deficiency anemia, unspecified (principal); E43 Unspecified severe protein-calorie malnutrition; E87.1 Hypo-osmolality and hyponatremia; E21.3 Hyperparathyroidism, unspecified; E83.42 Hypomagnesemia; E87.6 Hypokalemia; I10 Essential (primary) hypertension; K21.9 Gastro-esophageal reflux disease without esophagitis; K26.9 Duodenal ulcer, unspecified as acute or chronic, without hemorrhage or perforation; M17.0 Bilateral primary osteoarthritis of knee; Z82.3 Family history of stroke; Z82.49 Family history of ischemic heart disease and other diseases of the circulatory system; Z90.710 Acquired absence of both cervix and uterus; Z88.5 Allergy status to narcotic agent
CPT/HCPCS: 36415; 80048; 80053; 82550; 82607; 82728; 82746; 83010; 83540; 83550; 83615; 83690; 83735; 83970; 84466; 84484; 85007; 85014; 85018; 85027; 85045; 86850; 86900; 86901; 86920; 88305; 88342; 93005; 96361; 96374; J1756; J2405; J2704; J3010; J7030; J7040; J7050; J7120; P9016; 97116; 99285-25